=== PATIENT | male | born 1995 | race Two or more races ===

== ENCOUNTER 2024-12-01 19:26 | Emergency (ER) | payer SELFPAY ==
[2024-12-01 19:50] VITALS: BP 120/72; PULSE 114; RESP 18; TEMP 37.4; O2SAT 98; BMI 29.2; BMI 33.2
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
== END 2024-12-01 20:19 | disposition home or self-care (01) ==
LOC: SERX 20:06
PROVIDERS: Emergency Provider Emergency Medicine
DX: Z02.89 Encounter for other administrative examinations (principal)
CPT/HCPCS: 99281